=== PATIENT | female | born 1940 | race Caucasian/White ===

== ENCOUNTER → 2018-03-30 | Outpatient (CLI) | payer OTHER | END | disposition home or self-care (01) | LOC: CARD 02-16 15:00 | DX: I10 Essential (primary) hypertension (principal); I45.2 Bifascicular block ==

== ENCOUNTER 2020-05-16 15:09 | Emergency (ER) | payer OTHER ==
[~2020-05-16] VITALS: Ht 167.6 cm; Wt 64.9 kg
[2020-05-16 18:18] LABS: BASO % 0.2 % (0.0-1.0); HEMATOCRIT 32.7 % (37.0-47.0); LYMPH # 0.8 10*3/uL (1.3-4.4); LYMPH % 7.4 % (27.0-41.0); MEAN CELL VOLUME 89.8 fl (81.0-99.0); MEAN CORPUSCULAR HGB 28.8 pg (27.0-31.0); MEAN CORPUSCULAR HGB CONC 32.1 g/dl (33.0-37.0); MEAN PLATELET VOLUME 9.1 fl (9.6-12.3); MONO # 0.6 10*3/uL (0.1-1.0); MONO % 5.2 % (3.0-9.0); NEUT # 9.7 10*3/uL (2.3-7.9); NEUT % 86.9 % (47.0-73.0); PLATELET COUNT AUTOMATED 212 10*3/uL (130-400); RED BLOOD COUNT 3.64 10*6/uL (4.10-5.10); WHITE BLOOD COUNT 11.1 10*3/uL (4.8-10.8)
[2020-05-16 18:29] LABS: ACT PARTIAL THROMBO TIME 30.1 SECONDS (20.0-32.1)
[2020-05-16 18:34] LABS: ALBUMIN 3.6 gm/dl (3.1-4.5); ALKALINE PHOSPHATASE 74 U/L (45-117); BUN 24 mg/dl (7-24); CHLORIDE 110 mmol/L (98-107); LIPASE 49 U/L (73-393); POTASSIUM 4.1 mmol/L (3.5-5.1); SGOT/AST 10 IU/L (3-35); SGPT/ALT 17 U/L (12-78); SODIUM 139 mmol/L (136-145); TOTAL PROTEIN 7.1 gm/dL (6.4-8.2)
[2020-05-16 18:55] LABS: TROPONIN I < 0.015 ng/ml (<0.045)
[2020-05-16 19:38] LABS: BILIRUBIN NEGATIVE; BLOOD NEGATIVE (NEGATIVE); CLARITY CLOUDY (CLEAR); COLOR YELLOW (YELLOW); GLUCOSE NEGATIVE; KETONE NEGATIVE
[2020-05-16 19:39] LABS: LEUKO ESTERASE 2+ (NEGATIVE); NITRITE NEGATIVE (NEGATIVE); UROBILINOGEN 0.2 E.U./dl (0.0-1.0)
[2020-05-16 19:46] LABS: BACTERIA 4+; RBC 0-2 rbc/hpf (0-2); WBC 21-30 wbc/hpf (0-5)
[2020-05-16 19:47] LABS: MUCOUS TRACE
[2020-05-16] MEDS ORDERED: SEPTDS PO (20:10)
== END 2020-05-16 20:20 | disposition home or self-care (01) ==
LOC: ED 15:09
PROVIDERS: Physician Assistant
DX: R42 Dizziness and giddiness (principal); R79.1 Abnormal coagulation profile; F17.200 Nicotine dependence, unspecified, uncomplicated

== ENCOUNTER 2022-01-17 09:22 | Inpatient (IN) | payer MEDICARE ==
[~2022-01-17] VITALS: Ht 167.6 cm; Wt 71.4 kg
[~2022-01-17 09:22] MED LIST: SEPTDS PO
[2022-01-17 09:30] VITALS: BP 104/41
[2022-01-17 09:50] LABS: HEMATOCRIT 29.5 % (37.0-47.0); MEAN CELL VOLUME 82.4 fl (81.0-99.0); MEAN CORPUSCULAR HGB 24.3 pg (27.0-31.0); MEAN CORPUSCULAR HGB CONC 29.5 g/dl (33.0-37.0); MEAN PLATELET VOLUME 9.9 fl (9.6-12.3); PLATELET COUNT AUTOMATED 243 10*3/uL (130-400); RED BLOOD COUNT 3.58 10*6/uL (4.10-5.10); RED CELL DISTRI WIDTH 16.8 % (0-14.5); WHITE BLOOD COUNT 3.5 10*3/uL (4.8-10.8)
[2022-01-17 10:04] LABS: ACT PARTIAL THROMBO TIME 29.9 SECONDS (20.0-32.1); MANUAL DIFF REFLEX YES
[2022-01-17 10:09] LABS: CREATININE 2.15 mg/dL (0.55-1.02); POTASSIUM 4.9 mmol/L (3.5-5.1); TOTAL PROTEIN 6.5 gm/dL (6.4-8.2)
[2022-01-17 10:26] LABS: TOTAL CELLS COUNTED 100 #CELLS
[2022-01-17 10:27] LABS: BURR CELLS FEW; PLATELET SUFFICIENCY NORMAL (NORMAL)
[2022-01-17 13:15] VITALS: BP 145/52
[2022-01-17] MEDS ORDERED: NORVASC5 MG PO (14:18)
[2022-01-17] MEDS ORDERED: MOBIC15 MG PO (14:19)
[2022-01-17] MEDS ORDERED: LISINOPRIL-HCT1 EACH PO (14:20)
[2022-01-17] MEDS ORDERED: LIPITOR20 MG PO (14:20)
[2022-01-17] MEDS ORDERED: PROTONIX40 MG PO (14:21)
[2022-01-17] MEDS ORDERED: COREG6.25 MG PO (14:21)
[2022-01-17] MEDS ORDERED: METFORMIN HYD1000 MG PO (14:22)
[2022-01-17] MEDS ORDERED: BASAG SOL SC (14:23)
[2022-01-17] MEDS ORDERED: PROVENTIL HFA6.7 GM PO (14:24)
[2022-01-17] MEDS ORDERED: POTASSIUM CHLO20 ME4 PO (14:24)
[2022-01-17 16:00] VITALS: BP 116/80
[2022-01-17 20:00] VITALS: BP 121/55
[2022-01-17 21:09] LABS: BILIRUBIN Negative (Negative); BLOOD Negative (Negative); CLARITY Cloudy (Clear); COLOR Yellow (Yellow); GLUCOSE Negative (Negative); KETONE Trace (Negative); LEUKO ESTERASE 1+ (Negative); NITRITE Negative (Negative); SPECIFIC GRAVITY 1.015 (1.001-1.030); UROBILINOGEN 0.2 E.U./dl (0.0-1.0)
[2022-01-17 21:16] LABS: BACTERIA 3+; EPITHELIAL CELLS 41-50
[2022-01-18] VITALS: BP 101/85
[2022-01-18 04:00] VITALS: BP 132/60
[2022-01-18 06:24] LABS: CREATININE 1.41 mg/dL (0.55-1.02); POTASSIUM 4.5 mmol/L (3.5-5.1); TOTAL PROTEIN 6.1 gm/dL (6.4-8.2)
[2022-01-18 06:25] LABS: HEMATOCRIT 26.8 % (37.0-47.0); MEAN CELL VOLUME 81.2 fl (81.0-99.0); MEAN CORPUSCULAR HGB 24.8 pg (27.0-31.0); MEAN CORPUSCULAR HGB CONC 30.6 g/dl (33.0-37.0); MEAN PLATELET VOLUME 9.9 fl (9.6-12.3); PLATELET COUNT AUTOMATED 196 10*3/uL (130-400); RED CELL DISTRI WIDTH 16.4 % (0-14.5); WHITE BLOOD COUNT 3.9 10*3/uL (4.8-10.8)
[2022-01-18 06:28] LABS: ACT PARTIAL THROMBO TIME 33.7 SECONDS (20.0-32.1)
[2022-01-18 06:34] LABS: FREE T4 1.33 ng/dl (0.76-1.46); THYROID STIM HORMONE (HS) 0.428 uIU/ml (0.358-4.75)
[2022-01-18 06:38] LABS: MANUAL DIFF REFLEX YES
[2022-01-18 07:11] LABS: BURR CELLS FEW; OVALOCYTES FEW; POLYCHROMASIA SLIGHT; TOTAL CELLS COUNTED 100 #CELLS
[2022-01-18 07:12] LABS: PLATELET SUFFICIENCY NORMAL (NORMAL); ROULEAUX SLIGHT
[2022-01-18 07:25] LABS: VITAMIN D, 25-HYDROXY 8.3 ng/mL (30-100)
[2022-01-18 08:00] VITALS: BP 130/60
[2022-01-18 16:00] VITALS: BP 124/67
[2022-01-18 20:00] VITALS: BP 130/62
[2022-01-19] VITALS: BP 122/66
[2022-01-19 04:00] VITALS: BP 124/70
[2022-01-19 06:27] LABS: CREATININE 1.2 mg/dL (0.55-1.02)
[2022-01-19 06:34] LABS: HEMATOCRIT 25.1 % (37.0-47.0); MEAN CELL VOLUME 81.8 fl (81.0-99.0); MEAN CORPUSCULAR HGB 24.4 pg (27.0-31.0); MEAN CORPUSCULAR HGB CONC 29.9 g/dl (33.0-37.0); MEAN PLATELET VOLUME 10.1 fl (9.6-12.3); PLATELET COUNT AUTOMATED 179 10*3/uL (130-400); RED BLOOD COUNT 3.07 10*6/uL (4.10-5.10); RED CELL DISTRI WIDTH 16.9 % (0-14.5); WHITE BLOOD COUNT 4.7 10*3/uL (4.8-10.8)
[2022-01-19 06:37] LABS: MANUAL DIFF REFLEX YES
[2022-01-19 06:53] LABS: TOTAL CELLS COUNTED 100 #CELLS
[2022-01-19 06:54] LABS: BURR CELLS FEW; SCHISTOCYTES FEW
[2022-01-19 06:57] LABS: PLATELET SUFFICIENCY NORMAL (NORMAL); POLYCHROMASIA SLIGHT
[2022-01-19 08:00] VITALS: BP 132/70
[2022-01-19] MEDS ORDERED: ZITHROMAX250 MG PO (12:45)
[2022-01-19] MEDS ORDERED: PREDNISONE10 MG PO (12:45)
[2022-01-19] MEDS ORDERED: MUCINEX1200 M1 PO (12:45)
== END 2022-01-19 14:45 | disposition home or self-care (01) | DRG 871 ==
LOC: ED 09:22 → 4E 11:20 → EDHOLD 11:20 → 4E 12:14
PROVIDERS: Emergency Medicine; Internal Medicine; ADMIT Internal Medicine; ATTEND Internal Medicine
DX: A41.9 Sepsis, unspecified organism (principal); J96.01 Acute respiratory failure with hypoxia; J15.6 Pneumonia due to other Gram-negative bacteria; N17.0 Acute kidney failure with tubular necrosis; E44.0 Moderate protein-calorie malnutrition; Z20.822 Contact with and (suspected) exposure to COVID-19; J41.0 Simple chronic bronchitis; R65.20 Severe sepsis without septic shock; D64.9 Anemia, unspecified; E87.8 Other disorders of electrolyte and fluid balance, not elsewhere classified; E83.42 Hypomagnesemia; E11.65 Type 2 diabetes mellitus with hyperglycemia; Z68.25 Body mass index [BMI] 25.0-25.9, adult; Z79.4 Long term (current) use of insulin; Z87.891 Personal history of nicotine dependence; Z82.49 Family history of ischemic heart disease and other diseases of the circulatory system; Z82.5 Family history of asthma and other chronic lower respiratory diseases; Z79.899 Other long term (current) drug therapy

== ENCOUNTER → 2022-01-21 | Outpatient (CLI) | payer OTHER ==
[~2022-01-21] MED LIST changes: +BASAG SOL SC; +COREG6.25 MG PO; +LIPITOR20 MG PO; +LISINOPRIL-HCT1 EACH PO; +METFORMIN HYD1000 MG PO; +MOBIC15 MG PO; +MUCINEX1200 M1 PO; +NORVASC5 MG PO; +POTASSIUM CHLO20 ME4 PO; +PREDNISONE10 MG PO; +PROTONIX40 MG PO; +PROVENTIL HFA6.7 GM PO; +ZITHROMAX250 MG PO
[2022-01-21 13:47] LABS: HEMATOCRIT 29.2 % (37.0-47.0); MEAN CELL VOLUME 79.1 fl (81.0-99.0); MEAN CORPUSCULAR HGB 24.1 pg (27.0-31.0); MEAN CORPUSCULAR HGB CONC 30.5 g/dl (33.0-37.0); MEAN PLATELET VOLUME 9.8 fl (9.6-12.3); NUCLEATED RED BLOOD CELL 0.1 10*3/uL (0.0-0.0); NUCLEATED RED BLOOD CELL 0.7 % (0.0-0.0); PLATELET COUNT AUTOMATED 242 10*3/uL (130-400); RED BLOOD COUNT 3.69 10*6/uL (4.10-5.10); RED CELL DISTRI WIDTH 16.3 % (0-14.5); WHITE BLOOD COUNT 7.5 10*3/uL (4.8-10.8)
[2022-01-21 13:48] LABS: MANUAL DIFF REFLEX YES
[2022-01-21 14:08] LABS: IRON 27 ug/dL (50-170); TOTAL IRON BINDING CAPACITY 281 ug/dl (250-450)
[2022-01-21 14:11] LABS: PLATELET SUFFICIENCY NORMAL (NORMAL); POLYCHROMASIA SLIGHT; TOTAL CELLS COUNTED 100 #CELLS
[2022-01-21 14:12] LABS: BURR CELLS FEW
== END | disposition home or self-care (01) ==
LOC: LAB 13:14
PROVIDERS: ATTEND Family Medicine
DX: D50.9 Iron deficiency anemia, unspecified (principal)

== ENCOUNTER → 2022-03-03 | Outpatient (CLI) | payer OTHER ==
[2022-03-03 09:49] LABS: BASO % 0.5 % (0.0-1.0); EOS # 0.2 10*3/uL (0.0-0.4); EOS % 3.4 % (1.0-4.0); LYMPH # 1.2 10*3/uL (1.3-4.4); LYMPH % 21.3 % (27.0-41.0); MEAN CELL VOLUME 84.2 fl (81.0-99.0); MEAN CORPUSCULAR HGB 25.5 pg (27.0-31.0); MEAN CORPUSCULAR HGB CONC 30.3 g/dl (33.0-37.0); MEAN PLATELET VOLUME 9.2 fl (9.6-12.3); MONO # 0.6 10*3/uL (0.1-1.0); MONO % 10.2 % (3.0-9.0); NEUT # 3.6 10*3/uL (2.3-7.9); NEUT % 63.9 % (47.0-73.0); PLATELET COUNT AUTOMATED 245 10*3/uL (130-400); RED BLOOD COUNT 3.68 10*6/uL (4.10-5.10); RED CELL DISTRI WIDTH 21.3 % (0-14.5); WHITE BLOOD COUNT 5.6 10*3/uL (4.8-10.8)
[2022-03-03 10:11] LABS: POTASSIUM 4.8 mmol/L (3.5-5.1)
[2022-03-03 10:27] LABS: CREATININE 1.21 mg/dL (0.55-1.02)
== END ==
LOC: LAB 09:24
PROVIDERS: ATTEND Family Medicine
DX: I10 Essential (primary) hypertension (principal); E11.9 Type 2 diabetes mellitus without complications; D50.0 Iron deficiency anemia secondary to blood loss (chronic)

== ENCOUNTER → 2022-05-21 | Outpatient (CLI) | payer OTHER ==
[2022-05-21 13:59] LABS: BASO % 0.4 % (0.0-1.0); EOS # 0.7 10*3/uL (0.0-0.4); EOS % 8.3 % (1.0-4.0); HEMATOCRIT 38.1 % (37.0-47.0); LYMPH # 1.3 10*3/uL (1.3-4.4); LYMPH % 16.3 % (27.0-41.0); MEAN CELL VOLUME 91.6 fl (81.0-99.0); MEAN CORPUSCULAR HGB 29.8 pg (27.0-31.0); MEAN CORPUSCULAR HGB CONC 32.5 g/dl (33.0-37.0); MEAN PLATELET VOLUME 9.3 fl (9.6-12.3); MONO # 0.6 10*3/uL (0.1-1.0); MONO % 6.8 % (3.0-9.0); NEUT # 5.6 10*3/uL (2.3-7.9); PLATELET COUNT AUTOMATED 225 10*3/uL (130-400); RED BLOOD COUNT 4.16 10*6/uL (4.10-5.10); RED CELL DISTRI WIDTH 13.8 % (0-14.5); WHITE BLOOD COUNT 8.2 10*3/uL (4.8-10.8)
[2022-05-21 14:16] LABS: CREATININE 1.18 mg/dL (0.55-1.02); POTASSIUM 4.2 mmol/L (3.5-5.1)
== END | disposition home or self-care (01) ==
LOC: LAB 13:39
PROVIDERS: ATTEND Family Medicine
DX: E11.9 Type 2 diabetes mellitus without complications (principal); D50.9 Iron deficiency anemia, unspecified

== ENCOUNTER 2022-09-03 12:42 | Emergency (ER) | payer OTHER ==
[~2022-09-03] VITALS: Ht 167.6 cm; Wt 64.9 kg
[2022-09-03 13:42] LABS: BASO % 0.4 % (0.0-1.0); EOS # 0.2 10*3/uL (0.0-0.4); EOS % 3.2 % (1.0-4.0); LYMPH # 0.9 10*3/uL (1.3-4.4); LYMPH % 13.2 % (27.0-41.0); MEAN CELL VOLUME 90.9 fl (81.0-99.0); MEAN CORPUSCULAR HGB 30.5 pg (27.0-31.0); MEAN CORPUSCULAR HGB CONC 33.5 g/dl (33.0-37.0); MEAN PLATELET VOLUME 9.2 fl (9.6-12.3); MONO # 0.4 10*3/uL (0.1-1.0); MONO % 5.9 % (3.0-9.0); NEUT # 5.3 10*3/uL (2.3-7.9); PLATELET COUNT AUTOMATED 188 10*3/uL (130-400); RED BLOOD COUNT 4.07 10*6/uL (4.10-5.10); RED CELL DISTRI WIDTH 13.2 % (0-14.5); WHITE BLOOD COUNT 6.9 10*3/uL (4.8-10.8)
[2022-09-03 13:53] LABS: ACT PARTIAL THROMBO TIME 24.2 SECONDS (20.0-32.1); INTERNATIONAL NORM RATIO 0.9 (2.0-3.5)
[2022-09-03 13:59] LABS: ALKALINE PHOSPHATASE 92 U/L (46-116); BUN 21 mg/dl (9-23); CHLORIDE 101 mmol/L (98-107); LIPASE 27 U/L (12-53); POTASSIUM 4.7 mmol/L (3.4-5.1); TOTAL PROTEIN 6.4 gm/dL (6.0-8.0)
[2022-09-03 14:01] LABS: SGPT/ALT < 7 U/L (10-49)
[2022-09-03 15:41] LABS: BILIRUBIN Negative (Negative); BLOOD Negative (Negative); CLARITY Clear (Clear); COLOR Yellow (Yellow); GLUCOSE Negative (Negative); KETONE Trace (Negative); LEUKO ESTERASE Negative (Negative); NITRITE Negative (Negative); UROBILINOGEN 0.2 E.U./dl (0.0-1.0)
[2022-09-03 15:50] LABS: RBC 0-2 rbc/hpf (0-2)
[2022-09-03] MEDS ORDERED: MECLIZINE HCL25 M2 PO (16:09)
== END 2022-09-03 16:22 | disposition home or self-care (01) ==
LOC: ED 12:42
PROVIDERS: Physician Assistant
DX: H81.10 Benign paroxysmal vertigo, unspecified ear (principal); Z79.899 Other long term (current) drug therapy; Z87.891 Personal history of nicotine dependence

== ENCOUNTER → 2022-12-25 | Outpatient (CLI) | payer OTHER ==
[~2022-12-25] MED LIST changes: +MECLIZINE HCL25 M2 PO
[2022-12-25 09:23] LABS: BASO % 0.6 % (0.0-1.0); EOS # 0.5 10*3/uL (0.0-0.4); EOS % 7.4 % (1.0-4.0); HEMATOCRIT 36.9 % (37.0-47.0); LYMPH # 1.4 10*3/uL (1.3-4.4); LYMPH % 22.3 % (27.0-41.0); MEAN CELL VOLUME 91.3 fl (81.0-99.0); MEAN CORPUSCULAR HGB 30.7 pg (27.0-31.0); MEAN CORPUSCULAR HGB CONC 33.6 g/dl (33.0-37.0); MONO # 0.5 10*3/uL (0.1-1.0); MONO % 7.9 % (3.0-9.0); NEUT # 3.9 10*3/uL (2.3-7.9); NEUT % 61.6 % (47.0-73.0); PLATELET COUNT AUTOMATED 197 10*3/uL (130-400); RED BLOOD COUNT 4.04 10*6/uL (4.10-5.10); RED CELL DISTRI WIDTH 13.6 % (0-14.5); WHITE BLOOD COUNT 6.3 10*3/uL (4.8-10.8)
[2022-12-25 09:57] LABS: POTASSIUM 4.7 mmol/L (3.4-5.1); THYROID STIM HORMONE (HS) 2.621 uIU/ml (0.550-4.780)
== END | disposition home or self-care (01) ==
LOC: LAB 08:54
PROVIDERS: ATTEND Family Medicine
DX: I10 Essential (primary) hypertension (principal); E11.9 Type 2 diabetes mellitus without complications

== ENCOUNTER 2024-05-13 07:40 | Inpatient (IN) | payer MEDICARE ==
[~2024-05-13] VITALS: Ht 165.1 cm; Wt 67.3 kg
[2024-05-13 07:52] VITALS: BP 101/53
[2024-05-13] MEDS ORDERED: ZESTORETIC 20-1 EACH PO (07:58)
[2024-05-13] MEDS ORDERED: FERROUS FUMARA324 MG PO (07:59)
[2024-05-13] MEDS ORDERED: MECLIZINE HYD12.5 MG PO (08:00)
[2024-05-13 08:32] LABS: BASO % 0.2 % (0.0-1.0); EOS # 0.2 10*3/uL (0.0-0.4); EOS % 1.6 % (1.0-4.0); HEMATOCRIT 33.1 % (37.0-47.0); LYMPH # 0.7 10*3/uL (1.3-4.4); LYMPH % 5.8 % (27.0-41.0); MEAN CELL VOLUME 90.7 fl (81.0-99.0); MEAN CORPUSCULAR HGB 30.7 pg (27.0-31.0); MEAN CORPUSCULAR HGB CONC 33.8 g/dl (33.0-37.0); MEAN PLATELET VOLUME 9.8 fl (9.6-12.3); MONO % 8.4 % (3.0-9.0); NEUT # 9.9 10*3/uL (2.3-7.9); PLATELET COUNT AUTOMATED 221 10*3/uL (130-400); RED BLOOD COUNT 3.65 10*6/uL (4.10-5.10); RED CELL DISTRI WIDTH 12.2 % (0-14.5)
[2024-05-13 09:02] LABS: POTASSIUM 3.6 mmol/L (3.4-5.1)
[2024-05-13] MEDS ORDERED: SODIUM CHLORIDE 0.9% 1,000 ML IV ONE ×2 (09:45→11:25)
[2024-05-13] MEDS ORDERED: INSULIN REGULAR, HUMAN 1 UNIT/0.01 ML SC ONE (09:45)
[2024-05-13] MEDS ORDERED: AZITHROMYCIN 250 ML IV ONE (10:20)
[2024-05-13] MEDS ORDERED: Ceftriaxone Sodium 1 GM/10 ML SYR IV ONE (10:20)
[2024-05-13 15:15] LABS: BILIRUBIN Negative (Negative); BLOOD Negative (Negative); CLARITY Turbid (Clear); COLOR Yellow (Yellow); GLUCOSE 1+ (Negative); KETONE Negative (Negative); LEUKO ESTERASE 3+ (Negative); NITRITE Negative (Negative); SPECIFIC GRAVITY 1.015 (1.001-1.030); UROBILINOGEN 0.2 E.U./dl (0.0-1.0)
[2024-05-13 15:20] LABS: BACTERIA 4+; WBC TNTC wbc/hpf (0-5)
[2024-05-13] MEDS ORDERED: DEXTROSE 10 % IN WATER 250 ML IV PRN (16:15)
[2024-05-13] MEDS ORDERED: INSULIN LISPRO 1 UNIT/0.01 ML SQ SCH (16:30)
[2024-05-13 18:10] VITALS: BP 171/76
[2024-05-13] MEDS ORDERED: ALBUTEROL 8 GM INHALER INH PRN (19:35)
[2024-05-13 20:00] VITALS: BP 170/79
[2024-05-13] MEDS ORDERED: Albuterol Sulfate 2.5 MG/3 ML VIAL NEB PRN (20:00)
[2024-05-13] MEDS ORDERED: Insulin Glargine, Recombinan 1 UNIT/0.01 ML SC SCH (22:00)
[2024-05-13] MEDS ORDERED: CARVEDILOL 6.25 MG TAB PO SCH (22:00)
[2024-05-13] MEDS ORDERED: Acetaminophen/Hydrocodone 5 MG/325 MG TABLET PO PRN (22:10)
[2024-05-14] VITALS: BP 164/62
[2024-05-14 06:07] LABS: BASO % 0.3 % (0.0-1.0); EOS # 0.2 10*3/uL (0.0-0.4); HEMATOCRIT 32.4 % (37.0-47.0); LYMPH # 1.1 10*3/uL (1.3-4.4); LYMPH % 10.7 % (27.0-41.0); MEAN CORPUSCULAR HGB 30.4 pg (27.0-31.0); MEAN PLATELET VOLUME 10.2 fl (9.6-12.3); MONO # 1.2 10*3/uL (0.1-1.0); MONO % 11.5 % (3.0-9.0); NEUT # 7.5 10*3/uL (2.3-7.9); NEUT % 74.8 % (47.0-73.0); PLATELET COUNT AUTOMATED 245 10*3/uL (130-400); RED BLOOD COUNT 3.52 10*6/uL (4.10-5.10); RED CELL DISTRI WIDTH 12.5 % (0-14.5)
[2024-05-14 06:12] LABS: POTASSIUM 3.2 mmol/L (3.4-5.1)
[2024-05-14] MEDS ORDERED: Pantoprazole Sodium 40 MG TAB PO SCH (07:30)
[2024-05-14 08:00] VITALS: BP 151/64
[2024-05-14] MEDS ORDERED: amLODIPine besylate 5 MG TAB PO SCH (10:00)
[2024-05-14] MEDS ORDERED: ATORVASTATIN CALCIUM 20 MG TAB PO SCH (10:00)
[2024-05-14] MEDS ORDERED: Ceftriaxone Sodium 1 GM in SYRINGE INFUSION 10 ML IV SCH (10:00)
[2024-05-14] MEDS ORDERED: Enoxaparin Sodium 30 MG/0.3 ML SYR SC SCH (10:00)
[2024-05-14] MEDS ORDERED: AZITHROMYCIN 250 ML IV SCH (11:00)
[2024-05-14] MEDS ORDERED: MAGNESIUM SULFATE 50 ML IV ONE (11:20)
[2024-05-14 12:00] VITALS: BP 134/64
[2024-05-14 16:00] VITALS: BP 138/75
[2024-05-14 20:00] VITALS: BP 142/68
[2024-05-15] VITALS: BP 144/67
[2024-05-15 06:08] LABS: BASO % 0.5 % (0.0-1.0); EOS # 0.4 10*3/uL (0.0-0.4); EOS % 4.3 % (1.0-4.0); HEMATOCRIT 33.1 % (37.0-47.0); LYMPH # 1.1 10*3/uL (1.3-4.4); LYMPH % 12.1 % (27.0-41.0); MEAN CELL VOLUME 93.8 fl (81.0-99.0); MEAN CORPUSCULAR HGB 30.6 pg (27.0-31.0); MEAN CORPUSCULAR HGB CONC 32.6 g/dl (33.0-37.0); MEAN PLATELET VOLUME 9.7 fl (9.6-12.3); MONO % 11.4 % (3.0-9.0); NEUT # 6.1 10*3/uL (2.3-7.9); NEUT % 70.9 % (47.0-73.0); PLATELET COUNT AUTOMATED 257 10*3/uL (130-400); RED BLOOD COUNT 3.53 10*6/uL (4.10-5.10); RED CELL DISTRI WIDTH 12.5 % (0-14.5); WHITE BLOOD COUNT 8.7 10*3/uL (4.8-10.8)
[2024-05-15 06:45] LABS: POTASSIUM 3.1 mmol/L (3.4-5.1)
[2024-05-15] MEDS ORDERED: POTASSIUM CHLORIDE 20 MEQ TAB PO ONE (07:10)
[2024-05-15 08:00] VITALS: BP 141/71
[2024-05-15] MEDS ORDERED: Enoxaparin Sodium 40 MG/0.4 ML SYR SC SCH (10:00)
[2024-05-15 12:00] VITALS: BP 137/75
[2024-05-15] MEDS ORDERED: ZITHROMAX250 MG PO (13:49)
[2024-05-15] MEDS ORDERED: PREDNISONE50 MG PO (13:49)
[2024-05-15] MEDS ORDERED: JARDIANCE10 MG PO (13:49)
[2024-05-15] MEDS ORDERED: FERROUS FUMARA324 MG PO (13:49)
[2024-05-15] MEDS ORDERED: METFORMIN HYDR500 MG PO (13:50)
== END 2024-05-15 14:52 | disposition home or self-care (01) | DRG 190 ==
LOC: ED 07:40 → EDHOLD 10:22 → 4E 17:31
PROVIDERS: Internal Medicine; ADMIT Student in an Organized Health Care Education/Training Program; ATTEND Student in an Organized Health Care Education/Training Program
DX: J44.1 Chronic obstructive pulmonary disease with (acute) exacerbation (principal); N17.0 Acute kidney failure with tubular necrosis; E87.1 Hypo-osmolality and hyponatremia; I10 Essential (primary) hypertension; E11.65 Type 2 diabetes mellitus with hyperglycemia; D64.9 Anemia, unspecified; D72.829 Elevated white blood cell count, unspecified; E87.6 Hypokalemia; Z87.891 Personal history of nicotine dependence; Z79.899 Other long term (current) drug therapy; Z79.01 Long term (current) use of anticoagulants; Z79.2 Long term (current) use of antibiotics; Z82.5 Family history of asthma and other chronic lower respiratory diseases; Z82.49 Family history of ischemic heart disease and other diseases of the circulatory system; Z79.4 Long term (current) use of insulin

== ENCOUNTER 2024-05-16 15:57 | Emergency (ER) | payer MEDICARE ==
[~2024-05-16] VITALS: Wt 67.1 kg
[~2024-05-16 15:57] MED LIST changes: +FERROUS FUMARA324 MG PO; +JARDIANCE10 MG PO; +MECLIZINE HYD12.5 MG PO; +METFORMIN HYDR500 MG PO; +PREDNISONE50 MG PO; +ZESTORETIC 20-1 EACH PO
[2024-05-16 16:50] LABS: BASO % 0.2 % (0.0-1.0); HEMATOCRIT 34.4 % (37.0-47.0); LYMPH # 0.4 10*3/uL (1.3-4.4); LYMPH % 7.7 % (27.0-41.0); MEAN CELL VOLUME 91.7 fl (81.0-99.0); MEAN CORPUSCULAR HGB 30.9 pg (27.0-31.0); MEAN CORPUSCULAR HGB CONC 33.7 g/dl (33.0-37.0); MEAN PLATELET VOLUME 9.4 fl (9.6-12.3); MONO # 0.1 10*3/uL (0.1-1.0); MONO % 1.4 % (3.0-9.0); NEUT # 5.1 10*3/uL (2.3-7.9); NEUT % 89.3 % (47.0-73.0); PLATELET COUNT AUTOMATED 305 10*3/uL (130-400); RED BLOOD COUNT 3.75 10*6/uL (4.10-5.10); RED CELL DISTRI WIDTH 12.7 % (0-14.5); WHITE BLOOD COUNT 5.7 10*3/uL (4.8-10.8)
[2024-05-16 17:20] LABS: POTASSIUM 3.6 mmol/L (3.4-5.1)
[2024-05-16] MEDS ORDERED: INSULIN REGULAR, HUMAN 1 UNIT/0.01 ML SC ONE (17:40)
== END 2024-05-16 18:37 | disposition home or self-care (01) ==
LOC: ED 15:57
PROVIDERS: Nurse Practitioner Family
DX: E11.65 Type 2 diabetes mellitus with hyperglycemia (principal); R51.9 Headache, unspecified; I10 Essential (primary) hypertension; E78.5 Hyperlipidemia, unspecified; M19.90 Unspecified osteoarthritis, unspecified site; Z87.891 Personal history of nicotine dependence